=== PATIENT | female | born 1990 ===

== ENCOUNTER 2017-06-28 09:49 | Emergency (ER) | payer OTHER ==
[2017-06-28 09:52] VITALS: BMI 33.9
[2017-06-28 09:53] VITALS: BP 120/60; PULSE 80; RESP 20; TEMP 97.4; O2SAT 99
[2017-06-28] MEDS ORDERED: Sodium Chloride 0.9% 1,000 ML IV STA (10:33)
--- NOTE | 2017-06-28 10:39 | ED PDOC ---
HPI: Abdomen Chief Complaint (Provider): Lower abdominal pain/vomiting History Per: Patient History/Exam Limitations: no limitations Onset/Duration Of Symptoms: Days Outside of [place] travel?: No Current Symptoms Are (Timing): Still Present Severity: Moderate Pain Scale Rating Of: 7 Location Of Pain/Discomfort: RLQ, LLQ Quality Of Discomfort: Aching, Cramping Associated Symptoms: Nausea, Vomiting, Loss Of Appetite. denies: Fever, Diarrhea, Chest Pain, Constipation, Urinary Symptoms Exacerbating Factors: None Alleviating Factors: None Additional History Per: Patient <Mignon Hsu - Last Filed: 06/28/17 14:50> <Steven Betancourt - Last Filed: 06/28/17 15:30> Time Seen by Provider: 06/28/17 09:57 Chief Complaint (Nursing): Abdominal Pain Additional Complaint(s): This is 27 y/o female, with no PMH comes to the ED complaining of 4 days history of lower abdominal pain, NBNB vomiting, anorexia and 2 days history of vaginal spotting, less than a tea-spoon bleeding. As per patient, abdominal pain is constant, cramping in nature and non-radiating, 6/10 severity, denies any alleviating or aggravating factors. Admits nausea, headache and feeling of breast tightness, denies any fever, dyspnea, chest pain or urinary symptoms. LMP: Apr 28 2017, Positive Home test 8 days ago. PMD: NHC PMH: Denies PSH: Denies ALLG: NKDA Meds: None OBGYN: LMP 04/28/17, No history of STDs, Sexually active, denies protection use. , NVD. FH: Denies any cancers, HTN, DMII SH: Denies any alcohol, smoking or illicit drug use (Mignon Hsu) Supervising Attending Note - Supervising Attending Note The Documented history was done by the: Physician Scarf Gluer, Attending Physician The documented physical exam was done by the: Physician Scarf Gluer, Attending Physician The documented procedures were done by the: Physician Scarf Gluer, Attending Physician - Attestation: I have personally seen and examined this patient.: Yes I have fully participated in the care of the patient.: Yes I have reviewed all pertinent clinical information: Yes <Steven Betancourt - Last Filed: 06/28/17 15:30> Past Medical History Reviewed: Vital Signs - Medical History PMH: Denies: Depression, Diabetes, Deep Vein Thrombosis Other PMH: Denies - Surgical History Surgical History: No Surg Hx - Family History Family History: States: No Known Family Hx - Living Arrangements Living Arrangements: With Family - Social History Current smoker - smoking cessation education provided: No Ex-Smoker (has not smoked in the last 12 months): No Alcohol: None Drugs: Denies <Mignon Hsu - Last Filed: 06/28/17 14:50> <Steven Betancourt A - Last Filed: 06/28/17 15:30> Vital Signs: Last Vital Signs Temp 97.4 F L 06/28/17 09:53 Pulse 80 06/28/17 09:53 Resp 20 06/28/17 09:53 BP 120/60 06/28/17 09:53 Pulse Ox 99 06/28/17 14:54 - Home Medications Home Medications: Ambulatory Orders Medication Instructions Recorded No Known Home Med 06/28/17 - Allergies Allergies/Adverse Reactions: Allergies Allergy/AdvReac Type Severity Reaction Status Date / Time No Known Allergies Allergy Verified 06/28/17 10:00 Review of Systems Constitutional: Negative for: Fever Eyes: Negative for: Vision Change, Conjunctivae Inflammation ENT: Negative for: Ear Pain, Nose Pain Cardiovascular: Negative for: Chest Pain, Palpitations Respiratory: Negative for: Cough, Shortness of Breath Gastrointestinal: Positive for: Nausea, Vomiting, Abdominal Pain. Negative for : Diarrhea, Melena Genitourinary Female: Negative for: Dysuria, Frequency, Incontinence Musculoskeletal: Negative for: Neck Pain Skin: Negative for: Rash Neurological: Negative for: Weakness, Numbness, Incoordination Psych: Positive for: Anxiety <Mignon Hsu - Last Filed: 06/28/17 14:50> ROS Statement: Except As Marked, All Systems Reviewed And Found Negative <Steven Betancourt A - Last Filed: 06/28/17 15:30> Physical Exam - Reviewed Nursing Documentation Reviewed: Yes Vital Signs Reviewed: Yes - Physical Exam Appears: Positive for: No Acute Distress Head Exam: Positive for: ATRAUMATIC, NORMAL INSPECTION, NORMOCEPHALIC Skin: Positive for: Normal Color, Warm Eye Exam: Positive for: Normal appearance, EOMI ENT: Positive for: Normal ENT Inspection Neck: Positive for: Normal Cardiovascular/Chest: Positive for: Regular Rate, Rhythm, Chest Non Tender. Negative for: Edema Respiratory: Positive for: Normal Breath Sounds. Negative for: Crackles Gastrointestinal/Abdominal: Positive for: Bowel Sounds (normal), Soft, Tenderness (Lower abdo tenderness, ). Negative for: Mass, Distended, Guarding, Rebound, Asicites Back: Positive for: Normal Inspection Extremity: Positive for: Normal ROM. Negative for: Tenderness, Pedal Edema Neurologic/Psych: Positive for: Alert, Oriented. Negative for: Motor/Sensory Deficits <Mignon Hsu - Last Filed: 06/28/17 14:50> - Laboratory Results Result Diagrams: 06/28/17 10:57 06/28/17 10:57 - ECG O2 Sat by Pulse Oximetry: 99 - Progress Re-evaluation Time: 11:00 Condition: Re-examined, Improved (improved nausea and pain is somewhat better ) <Mignon Hsu - Last Filed: 06/28/17 14:50> - Laboratory Results Result Diagrams: 06/28/17 10:57 06/28/17 10:57 Urine POC: Positive Urine dip results: Negative for: Leukocyte Esterase, Blood, Nitrate, Ketones, Glucose, Protein <Steven Betancourt - Last Filed: 06/28/17 15:30> - Progress ED Course And Treament: 27 y/o with lower abdominal pain, vomiting and positive home test. - CBC, CMP, Type and Screen - Zofran 4mg IV STAT, IVF- 1L bolus - U/S lower abdo, limited - Urine dip, urine , BHcG - will re-evaluate patient for any further changes Case discussed with Dr. Betancourt 11:17: CBC and CMP reviewed, wnl 12:55: Patient reevaluated , feeling better, drinking fluid, denies any nausea or vomiting 14:29: BHC.00, O positive, Abs negative U/S: Single live IUP, approximately 6 weeks, tiny subcorionic hemorrhage, FHR 116 BPM, otherwise unremarkable exam. (Mignon Hsu) Medical Decision Making <Mignon Hsu - Last Filed: 06/28/17 14:50> <Steven Betancourt Last Filed: 06/28/17 15:30> Medical Decision Making: Differential include threatened miscarriage, demise, ectopic , and other complications, as well as UTI. (Steven Betancourt) Disposition - Patient ED Disposition Is Patient to be Admitted: No - Disposition Disposition: Routine/Home Disposition Time: 15:00 <Mignon Hsu - Last Filed: 06/28/17 14:50> Doctor Will See Patient In The: Office Counseled Patient/Family Regarding: Studies Performed, Diagnosis, Need For Followup <Steven Betancourt - Last Filed: 06/28/17 15:30> - Clinical Impression Clinical Impression: Abdominal pain during , Subchorionic hematoma - Disposition Referrals: [facility] [Outside] Condition: GOOD Additional Instructions: - Patient informed regarding her - ER/bleeding precautions given - Instructed to Follow Up with OBGYN at the clinic ([facility]) - vitamins recommended Instructions: Threatened Miscarriage (ED) Print Language: [place]
[2017-06-28 11:07] LABS: BASO # 0.1 K/uL (0.0-0.2); BASO % 0.8 % (0.0-2.0); EOS # 0.1 K/uL (0.0-0.7); EOS % 0.9 % (0.0-4.0); HEMOGLOBIN 13.7 g/dL (12.0-16.0); LYMPH # 1.9 K/uL (1.0-4.3); LYMPH % 27.8 % (20.0-40.0); MEAN CELL VOLUME 87.6 fl (81.0-99.0); MEAN CORPUSCULAR HEMOGLOBIN 29.7 pg (27.0-31.0); MEAN CORPUSCULAR HGB CONC 33.9 g/dL (33.0-37.0); MEAN PLATELET VOLUME 8.7 fl (7.2-11.7); MONO # 0.4 K/uL (0.0-0.8); MONO % 6.3 % (0.0-10.0); NEUT # 4.3 K/uL (1.8-7.0); NEUT % 64.2 % (50.0-75.0); NRBC % 0.3 % (0.0-0.0); RBC 4.61 Mil/uL (3.80-5.20); WHITE BLOOD COUNT 6.7 K/uL (4.8-10.8)
[2017-06-28 11:17] LABS: ALB/GLOB RATIO 1.2 (1.0-2.1); ALBUMIN 4.2 g/dL (3.5-5.0); ALT/SGPT 44 U/L (9-52); AST/SGOT 21 U/L (14-36); BLOOD UREA NITROGEN 7 mg/dl (7-17); CALCIUM 8.9 mg/dL (8.4-10.2); GFR AFRICAN-AMERICAN > 60; GFR NON-AFRICAN AMERICAN > 60
--- NOTE | 2017-06-28 14:19 | US ---
PROCEDURE: Obstetrical ultrasound examination HISTORY: lower abd pain COMPARISON: Not available TECHNIQUE: Transabdominal FINDINGS: Single live intrauterine gestation identified. The gestational sac diameter is 14 mm equivalent to 5 weeks 4 days. The crown-rump length is 5 mm equivalent to 6 weeks 2 days. The composite gestational age by ultrasound is 6 weeks 0 days. The heart rate is 116 beats per minute. There is a tiny subchorionic hemorrhage measuring 4 x 4 x 5 mm. A 3 mm yolk sac is visualized. The cervix is closed and measures 3.8 cm in length. The uterus measures 10.5 x 5.8 x 5.2 cm. There is no uterine mass identified. The right ovary measures 2.6 x 1.9 x 2.3 cm. Normal flow is demonstrated. There is no mass. The left ovary measures 3.2 x 1.5 x 1.5 cm. Normal flow is demonstrated. There is no mass. There is no free fluid in the cul-de-sac. IMPRESSION: Single live intrauterine gestation of approximately 6 weeks 0 days. Tiny subchorionic hemorrhage. heart rate 116 beats per minute. Otherwise unremarkable examination.
== END 2017-06-28 15:40 | disposition home or self-care (01) ==
LOC: H.ER 09:49
DX: O20.0 Threatened abortion (principal); Z3A.01 Less than 8 weeks gestation of pregnancy; O26.891 Other specified pregnancy related conditions, first trimester
CPT/HCPCS: 76815; 80053; 81025; 84702; 85025; 86850; 86900; 99284; J2405; J7040

== ENCOUNTER 2017-08-07 14:56 | Emergency (ER) | payer SELFPAY ==
[2017-08-07 14:56] VITALS: BMI 33.9
[2017-08-07 15:55] VITALS: BP 117/71; PULSE 78; RESP 18; TEMP 98.5; O2SAT 99
[2017-08-07] MEDS ORDERED: Lactated Ringer's 1,000 ML IV STA (18:16)
[2017-08-07] MEDS ORDERED: Dextrose 5%/Lactated Ringer's 1,000 ML IV SCH (18:30)
[2017-08-07 18:43] LABS: BASO # 0.1 K/uL (0.0-0.2); BASO % 0.5 % (0.0-2.0); EOS % 0.2 % (0.0-4.0); HEMOGLOBIN 13.1 g/dL (12.0-16.0); LYMPH % 13.9 % (20.0-40.0); MEAN CELL VOLUME 87.7 fl (81.0-99.0); MEAN CORPUSCULAR HEMOGLOBIN 29.6 pg (27.0-31.0); MEAN CORPUSCULAR HGB CONC 33.8 g/dL (33.0-37.0); MEAN PLATELET VOLUME 8.3 fl (7.2-11.7); MONO # 0.7 K/uL (0.0-0.8); MONO % 5.1 % (0.0-10.0); NEUT # 11.5 K/uL (1.8-7.0); NEUT % 80.3 % (50.0-75.0); NRBC % 0.1 % (0.0-0.0); RBC 4.41 Mil/uL (3.80-5.20); RED CELL DISTRIBUTION WIDTH 13.1 % (11.5-14.5); WHITE BLOOD COUNT 14.3 K/uL (4.8-10.8)
[2017-08-07 18:52] LABS: ALB/GLOB RATIO 1.1 (1.0-2.1); ALT/SGPT 35 U/L (9-52); AST/SGOT 25 U/L (14-36); BLOOD UREA NITROGEN 7 mg/dl (7-17); GFR AFRICAN-AMERICAN > 60; GFR NON-AFRICAN AMERICAN > 60
--- NOTE | 2017-08-07 19:03 | ED PDOC ---
HPI: Female Pain Time Seen by Provider: 08/07/17 17:44 Chief Complaint (Nursing): Female Genitourinary Chief Complaint (Provider): Vaginal bleeding History Per: Patient History/Exam Limitations: no limitations Onset/Duration Of Symptoms: Days (2) Current Symptoms Are (Timing): Still Present Additional Complaint(s): 27yo female, and EGA of 12 weeks based on date, presents to ED with complaints of vaginal bleeding for the past 2 days, occurring every time after she makes a bowel movement. She denies any rectal bleeding. Patient reports she is constipated; also states she has mild dysuria and frequency. She denies any care yet but states she has been taking vitamins. Carlos also reports daily nausea and vomiting. She denies any other complaints. Abnormal Vaginal Bleeding: Yes : 2 Para: 1 Past Medical History Reviewed: Historical Data, Nursing Documentation, Vital Signs Vital Signs: Last Vital Signs Temp 98.5 F 08/07/17 15:52 Pulse 78 08/07/17 15:52 Resp 18 08/07/17 15:52 BP 117/71 08/07/17 15:52 Pulse Ox 99 08/07/17 15:52 - Medical History PMH: No Chronic Diseases Denies: Depression, Diabetes, Deep Vein Thrombosis - Surgical History Surgical History: No Surg Hx - Family History Family History: States: No Known Family Hx - Home Medications Home Medications: Ambulatory Orders Medication Instructions Recorded Docusate [Colace] 100 mg PO TID PRN #30 cap 08/07/17 - Allergies Allergies/Adverse Reactions: Allergies Allergy/AdvReac Type Severity Reaction Status Date / Time No Known Allergies Allergy Verified 06/28/17 10:00 Review of Systems ROS Statement: Except As Marked, All Systems Reviewed And Found Negative (as per HPI otherwise negative) Gastrointestinal: Positive for: Nausea, Vomiting, Constipation. Negative for: Hematochezia Genitourinary Female: Positive for: Dysuria, Frequency, Vaginal Bleeding Physical Exam - Reviewed Nursing Documentation Reviewed: Yes Vital Signs Reviewed: Yes - Physical Exam Gastrointestinal/Abdominal: Positive for: Tenderness (suprapubic tenderness to palpation) - Laboratory Results Result Diagrams: 08/07/17 18:30 08/07/17 18:30 - ECG O2 Sat by Pulse Oximetry: 99 (RA) Pulse Ox Interpretation: Normal Medical Decision Making Medical Decision Making: Impression: Vaginal bleeding in Differential: Threatened , demise, UTI, dehydration Plan: -- US Transvaginal -- IV Fluids -- Zofran 4mg IVP -- Labs Time: 2040 US Transvaginal FINDINGS: Gestation: Single live intrauterine gestation. heart rate of 167 beats per minute. [place]-rump length of 5.4 cm, correlating with gestational age of 12 weeks 0 days. Biparietal diameter of 2.2 cm, correlating with gestational age of 13 weeks 4 days. Uterus/cervix: 1.7 x 1.2 x 1.8 cm collection along gestational sac. No cervical dilatation or effacement. Ovaries: Not visualized. No adnexal masses. Free fluid: No significant free fluid. IMPRESSION: 1. Single live intrauterine gestation. 2. Subchorionic hemorrhage. Scribe Attestation: Documented by Cyndi Foreman acting as a scribe for Ena Bowling MD. Provider Attestation: All medical record entries made by the Scribe were at my direction and personally dictated by me. I have reviewed the chart and agree that the record accurately reflects my personal performance of the history, physical exam, medical decision making, and the department course for this patient. I have also personally directed, reviewed, and agree with the discharge instructions and disposition. Disposition - Clinical Impression Clinical Impression: Threatened miscarriage - Disposition [facility] - [facility] (ESTA MUY IMPORTANTE QUANDO USTED LLAMA A LA CLINICA, USTED DIGA QUE USTED IRON UN PACIENTE DE LA SHANITA DE EMERGENCIA Y NECESITA IRON DEE LOS ANTES POSIBILE) Condition: GOOD Prescriptions: Docusate [Colace] 100 mg PO TID PRN #30 cap PRN Reason: constipation Instructions: Threatened Miscarriage (ED), Constipation (ED) Forms: [employer] (Thai) Print Language: COLOMBIAN
--- NOTE | 2017-08-07 20:42 | US ---
EXAM: US , Transvaginal CLINICAL HISTORY: 27 years old, female; Pain; complicated by abdominal or pelvic pain; Lower; First trimester; Gestational age or lmp: 04/28/2017; ; Additional info: Vag bleed preg R/O demise TECHNIQUE: Real-time transvaginal obstetrical ultrasound of the maternal pelvis and a first trimester with image documentation. Transvaginal imaging was used for better evaluation of the fetus and adnexa. COMPARISON: No relevant prior studies available. FINDINGS: Gestation: Single live intrauterine gestation. heart rate of 167 beats per minute. [place]-rump length of 5.4 cm, correlating with gestational age of 12 weeks 0 days. Biparietal diameter of 2.2 cm, correlating with gestational age of 13 weeks 4 days. Uterus/cervix: 1.7 x 1.2 x 1.8 cm collection along gestational sac. No cervical dilatation or effacement. Ovaries: Not visualized. No adnexal masses. Free fluid: No significant free fluid. IMPRESSION: 1. Single live intrauterine gestation. 2. Subchorionic hemorrhage.
== END 2017-08-07 21:28 | disposition home or self-care (01) ==
LOC: H.ER 14:56
DX: O20.0 Threatened abortion (principal); O21.9 Vomiting of pregnancy, unspecified; K59.00 Constipation, unspecified; Z3A.12 12 weeks gestation of pregnancy
CPT/HCPCS: 76817; 80053; 81025; 85025; 86850; 86900; 87491; 87591; 96361; 96374; 99283; J2405; J7120

== ENCOUNTER 2017-08-22 10:30 | Emergency (ER) | payer SELFPAY ==
[2017-08-22 10:30] VITALS: BMI 33.9
[2017-08-22 11:24] VITALS: RESP 18; TEMP 99.1
[2017-08-22] MEDS ORDERED: Alum-Mag Hydrox-Simethicone Susp (30 mL) PO STA (11:55)
[2017-08-22] MEDS ORDERED: Sodium Chloride 0.9% 1,000 ML IV STA (11:59)
[2017-08-22] MEDS ORDERED: Alum-Mag Hydrox-Simethicone Susp (30 mL) ONE (12:39)
--- NOTE | 2017-08-22 13:07 | ED PDOC ---
HPI: General Adult Time Seen by Provider: 08/22/17 11:45 Chief Complaint (Nursing): Abdominal Pain Chief Complaint (Provider): Throat Pain/Epigastric Pain History Per: Patient History/Exam Limitations: no limitations Onset/Duration Of Symptoms: Days (x1) Additional Complaint(s): Alex Almaguer is a 27 year old female who is currently 15 weeks that presents to the ED with a chief complaint body aches, mild sore throat, mild dry cough, and burning epigastric pain that she has been experiencing since yesterday. Patient reports that she has not been taking any medications given her , and states that she recently had an US performed for her with normal results. She denies any fever, vomiting , diarrhea, or medical problems. PMD: Goes to the clinic Past Medical History Reviewed: Historical Data, Nursing Documentation, Vital Signs Vital Signs: Last Vital Signs Temp 99.1 F 08/22/17 11:19 Pulse 116 H 08/22/17 11:19 Resp 18 08/22/17 11:19 BP 123/79 08/22/17 11:19 Pulse Ox 99 08/22/17 14:32 - Medical History PMH: No Chronic Diseases Denies: Depression, Diabetes, Deep Vein Thrombosis - Surgical History Surgical History: No Surg Hx - Family History Family History: States: Unknown Family Hx - Home Medications Home Medications: Ambulatory Orders Medication Instructions Recorded Docusate [Colace] 100 mg PO TID PRN #30 cap 08/07/17 Amoxicillin 875 mg PO BID #20 tab 08/22/17 - Allergies Allergies/Adverse Reactions: Allergies Allergy/AdvReac Type Severity Reaction Status Date / Time No Known Allergies Allergy Verified 06/28/17 10:00 Review of Systems ROS Statement: Except As Marked, All Systems Reviewed And Found Negative Constitutional: Positive for: Other (body aches). Negative for: Fever ENT: Positive for: Throat Pain (mild) Respiratory: Positive for: Cough (mild, dry) Gastrointestinal: Negative for: Vomiting, Diarrhea Physical Exam - Reviewed Nursing Documentation Reviewed: Yes Vital Signs Reviewed: Yes - Physical Exam Appears: Positive for: Non-toxic, No Acute Distress Head Exam: Positive for: ATRAUMATIC, NORMOCEPHALIC Skin: Positive for: Normal Color, Warm Eye Exam: Positive for: Normal appearance, EOMI, PERRL ENT: Positive for: Other (mild erythema to throat). Negative for: Normal ENT Inspection Neck: Positive for: Normal, Supple Cardiovascular/Chest: Positive for: Regular Rate, Rhythm. Negative for: Murmur Respiratory: Positive for: Normal Breath Sounds. Negative for: Wheezing Gastrointestinal/Abdominal: Positive for: Tenderness (mild epigastric TTP). Negative for: Normal Exam Back: Positive for: Normal Inspection. Negative for: L CVA Tenderness, R CVA Tenderness Extremity: Positive for: Normal ROM. Negative for: Deformity, Swelling Neurologic/Psych: Positive for: Alert. Negative for: Motor/Sensory Deficits - Laboratory Results Result Diagrams: 08/22/17 13:25 08/22/17 13:25 - ECG O2 Sat by Pulse Oximetry: 99 (RA) Pulse Ox Interpretation: Normal - Progress Re-evaluation Time: 14:30 Condition: Re-examined, Improved Medical Decision Making Medical Decision Making: Impression: Flu-Like Symptoms, Sore Throat, and Epigastric Pain, ddx include but not limited to Influenza vs. Strep vs. Pharyngitis vs. Gastritis Plan: * CMP * CBC * Urine Dip * Urine Preg * Tylenol 3 650 mg PO * Maalox Plus 30 ml PO * NaCl 1000 mLs at 1000 mLs/hr * Flu Swab * Rapid Strep * Reevaluation Scribe Attestation: Documented by Ofelia Young, acting as a scribe for Steven Spencer MD. Provider Scribe Attestation: All medical record entries made by the Scribe were at my direction and personally dictated by me. I have reviewed the chart and agree that the record accurately reflects my personal performance of the history, physical exam, medical decision making, and the department course for this patient. I have also personally directed, reviewed, and agree with the discharge instructions and disposition. Disposition - Clinical Impression Clinical Impression: Strep throat, Abdominal pain - Patient ED Disposition Is Patient to be Admitted: No Doctor Will See Patient In The: Office Counseled Patient/Family Regarding: Studies Performed, Diagnosis, Need For Followup - Disposition Referrals: [facility] [Outside] Disposition: Routine/Home Disposition Time: 14:29 Condition: GOOD Additional Instructions: Take your medications as instructed. Take tylenol for pain or fever. Follow up with your PCP in 2-3 days. Prescriptions: Amoxicillin 875 mg PO BID #20 tab Instructions: Gastritis, Strep Throat (DC) Print Language: URDU
[2017-08-22 13:50] LABS: BASO % 0.2 % (0.0-2.0); LYMPH # 0.9 K/uL (1.0-4.3); LYMPH % 7.1 % (20.0-40.0); MEAN CELL VOLUME 86.8 fl (81.0-99.0); MEAN CORPUSCULAR HEMOGLOBIN 29.8 pg (27.0-31.0); MEAN CORPUSCULAR HGB CONC 34.4 g/dL (33.0-37.0); MEAN PLATELET VOLUME 8.4 fl (7.2-11.7); MONO # 0.5 K/uL (0.0-0.8); MONO % 4.3 % (0.0-10.0); NEUT % 88.4 % (50.0-75.0); NRBC % 0.1 % (0.0-0.0); PLATELET COUNT 213 K/uL (130-400); RBC 4.36 Mil/uL (3.80-5.20); RED CELL DISTRIBUTION WIDTH 12.9 % (11.5-14.5); WHITE BLOOD COUNT 12.4 K/uL (4.8-10.8)
[2017-08-22 13:56] LABS: ALBUMIN 3.7 g/dL (3.5-5.0); ALT/SGPT 25 U/L (9-52); AST/SGOT 23 U/L (14-36); BLOOD UREA NITROGEN 5 mg/dl (7-17); CALCIUM 8.9 mg/dL (8.4-10.2); GFR AFRICAN-AMERICAN > 60; GFR NON-AFRICAN AMERICAN > 60
[2017-08-22 14:46] LABS: BANDS 2 % (0-2); LYMPHOCYTE 5 % (20-50); MONOCYTE 2 % (0-10); MYELOCYTE 1 % (0-0); NEUTROPHIL 90 % (42-75); TOTAL CELLS COUNTED 100
[2017-08-22 14:47] LABS: PLATELET ESTIMATE NORMAL (NORMAL)
[2017-08-22 16:08] VITALS: BP 122/76; PULSE 90; O2SAT 100
== END 2017-08-22 15:12 | disposition home or self-care (01) ==
LOC: H.ER 10:30
DX: J02.0 Streptococcal pharyngitis (principal); O26.892 Other specified pregnancy related conditions, second trimester; Z3A.15 15 weeks gestation of pregnancy
CPT/HCPCS: 80053; 85025; 87430; 87804; 99283; J7040

== ENCOUNTER 2017-10-24 18:09 | Emergency (ER) | payer SELFPAY ==
[2017-10-24 18:09] VITALS: BMI 33.9
[2017-10-24 18:14] VITALS: BP 128/80; PULSE 107; RESP 16; TEMP 98.5; O2SAT 98
--- NOTE | 2017-10-24 18:29 | ED PDOC ---
HPI: Psych/Substance Abuse Time Seen by Provider: 10/24/17 18:27 Chief Complaint (Nursing): Psychiatric Evaluation Chief Complaint (Provider): CRISIS EVAL History Per: Patient Additional Complaint(s): 27 are female currently 24 weeks presents to ER for psychiatric evaluation. Patient was at [facility] therapy appt when she expressed thoughts of wanting to harm herself. Therapist contacted ambulance and patient was brought here. Upon arrival patient states that she feels sad but denies any intention of wanting to harm herself or others. Patient states the father of her baby does not want to be with her this is causing her to feel sad. Patient denies any alcohol or drug use. She is currently taking vitamins but no other meds. Patient denies abdominal pain, vaginal bleeding or any other acute medical complaints. Past Medical History Reviewed: Historical Data, Nursing Documentation, Vital Signs Vital Signs: Last Vital Signs Temp 98.5 F 10/24/17 18:11 Pulse 107 H 10/24/17 18:11 Resp 16 10/24/17 18:11 BP 128/80 10/24/17 18:11 Pulse Ox 98 10/24/17 18:11 - Medical History PMH: No Chronic Diseases - Surgical History Surgical History: No Surg Hx - Family History Family History: States: No Known Family Hx - Living Arrangements Living Arrangements: With Family - Social History Current smoker - smoking cessation education provided: No Alcohol: None Drugs: Denies - Home Medications Home Medications: Ambulatory Orders Medication Instructions Recorded Docusate [Colace] 100 mg PO TID PRN #30 cap 08/07/17 Amoxicillin 875 mg PO BID #20 tab 08/22/17 - Allergies Allergies/Adverse Reactions: Allergies Allergy/AdvReac Type Severity Reaction Status Date / Time No Known Allergies Allergy Verified 06/28/17 10:00 Review of Systems Psych: Positive for: Depression, Suicidal ideation Physical Exam - Reviewed Nursing Documentation Reviewed: Yes Vital Signs Reviewed: Yes - Physical Exam Appears: Positive for: Well, Non-toxic, No Acute Distress Skin: Negative for: Rash Eye Exam: Positive for: Normal appearance Cardiovascular/Chest: Positive for: Regular Rate, Rhythm Respiratory: Positive for: Normal Breath Sounds Gastrointestinal/Abdominal: Positive for: Other (Gravid nontender abdomen) Back: Negative for: L CVA Tenderness, R CVA Tenderness Extremity: Positive for: Normal ROM Neurologic/Psych: Positive for: Alert, Oriented - ECG O2 Sat by Pulse Oximetry: 98 Pulse Ox Interpretation: Normal Medical Decision Making Medical Decision Makin27 year old here for crisis eval Plan: Crisis consult 1:1 bedside observation As per crisis counselor and psychiatrist [employer] saw operator, Dr. Barahona, patient does not meet criteria for admission and she is stable for discharge. Disposition - Clinical Impression Clinical Impression: Depression - Patient ED Disposition Is Patient to be Admitted: No Counseled Patient/Family Regarding: Need For Followup - Disposition [facility] Disposition: Routine/Home Disposition Time: 19:42 Condition: STABLE Additional Instructions: Follow up as directed. Instructions: Depression Forms: [employer] (Belarusian) Print Language: UKRAINIAN
[2017-10-24 19:23] LABS: SQUAMOUS EPITHIAL 2 /hpf (0-5); URINE BACTERIA RARE (<OCC); URINE BILIRUBIN NEGATIVE (NEGATIVE); URINE BLOOD NEGATIVE (NEGATIVE); URINE CLARITY CLOUDY (Clear); URINE COLOR YELLOW (YELLOW); URINE GLUCOSE (UA) NEG (Normal); URINE LEUKOCYTE ESTERASE NEG Leu/uL (Negative); URINE PROTEIN NEGATIVE (NEGATIVE); URINE UROBILINOGEN 0.2-1.0 mg/dL (0.2-1.0)
[2017-10-24 19:55] LABS: BARBITURATES, UR NEGATIVE (NEGATIVE); BENZODIAZEPINES, UR NEGATIVE (NEGATIVE); OPIATES, UR NEGATIVE (NEGATIVE); PHENCYCLIDINE, UR NEGATIVE (NEGATIVE)
[2017-10-24 20:05] LABS: ALBUMIN 3.4 g/dL (3.5-5.0); ALT/SGPT 30 U/L (9-52); AST/SGOT 18 U/L (14-36); BLOOD UREA NITROGEN 9 mg/dl (7-17); CALCIUM 8.4 mg/dL (8.4-10.2); GFR AFRICAN-AMERICAN > 60; GFR NON-AFRICAN AMERICAN > 60
[2017-10-24 20:11] LABS: BASO % 0.3 % (0.0-2.0); EOS % 0.5 % (0.0-4.0); HEMOGLOBIN 11.4 g/dL (12.0-16.0); LYMPH # 2.1 K/uL (1.0-4.3); LYMPH % 22.8 % (20.0-40.0); MEAN CELL VOLUME 88.3 fl (81.0-99.0); MEAN CORPUSCULAR HEMOGLOBIN 29.5 pg (27.0-31.0); MEAN CORPUSCULAR HGB CONC 33.5 g/dL (33.0-37.0); MEAN PLATELET VOLUME 8.3 fl (7.2-11.7); MONO # 0.6 K/uL (0.0-0.8); MONO % 6.7 % (0.0-10.0); NEUT # 6.5 K/uL (1.8-7.0); NEUT % 69.7 % (50.0-75.0); RBC 3.87 Mil/uL (3.80-5.20); RED CELL DISTRIBUTION WIDTH 13.5 % (11.5-14.5); WHITE BLOOD COUNT 9.3 K/uL (4.8-10.8)
== END 2017-10-24 20:00 | disposition home or self-care (01) ==
LOC: H.ER 18:09
DX: O99.342 Other mental disorders complicating pregnancy, second trimester (principal); Z3A.24 24 weeks gestation of pregnancy; F32.9 Major depressive disorder, single episode, unspecified

== ENCOUNTER 2017-12-19 14:36 | Emergency (ER) | payer OTHER ==
[2017-12-19 14:36] VITALS: BMI 33.9
[2017-12-19 14:41] VITALS: BP 112/69; PULSE 82; RESP 18; TEMP 97.7; O2SAT 98
--- NOTE | 2017-12-19 15:41 | ED PDOC ---
HPI: Headache Time Seen by Provider: 12/19/17 14:38 Chief Complaint (Nursing): Headache Chief Complaint (Provider): Headache History Per: Patient History/Exam Limitations: no limitations Onset/Duration Of Symptoms: Days Current Symptoms Are (Timing): Still Present Associated Symptoms: denies: Nausea, Vomiting Additional Complaint(s): 27 year old female presents to the ED for an evaluation of a headache onset for 1 week. Reports since past week, patient has right-sided, atraumatic, and gradual since onset headache. Patient is 30 weeks and under the care of Dr. Jewell. Denies head injury, fever, weakness, nausea, or vomiting. PMD: Elmira Jewell Past Medical History Reviewed: Historical Data, Nursing Documentation, Vital Signs Vital Signs: Last Vital Signs Temp 97.7 F 12/19/17 14:37 Pulse 82 12/19/17 14:37 Resp 18 12/19/17 14:37 BP 112/69 12/19/17 14:37 Pulse Ox 98 12/19/17 14:37 - Medical History PMH: Denies: Depression, Diabetes, Deep Vein Thrombosis, Hepatitis, HIV, HTN, Seizures, Sexually Transmitted Disease - Family History Family History: States: Unknown Family Hx - Home Medications Home Medications: Ambulatory Orders Medication Instructions Recorded Vit Calc,Iron,Folic 1 each PO DAILY 12/19/17 [ Vitamins] - Allergies Allergies/Adverse Reactions: Allergies Allergy/AdvReac Type Severity Reaction Status Date / Time No Known Allergies Allergy Verified 12/19/17 13:16 Review of Systems ROS Statement: Except As Marked, All Systems Reviewed And Found Negative Constitutional: Negative for: Fever, Weakness Gastrointestinal: Negative for: Nausea, Vomiting Neurological: Positive for: Headache. Negative for: Other (head injury) Physical Exam - Reviewed Nursing Documentation Reviewed: Yes Vital Signs Reviewed: Yes - Physical Exam Appears: Positive for: Well, Non-toxic, No Acute Distress Head Exam: Positive for: ATRAUMATIC, NORMAL INSPECTION, NORMOCEPHALIC Skin: Positive for: Normal Color, Warm, Dry. Negative for: Rash Eye Exam: Positive for: EOMI, Normal appearance, PERRL ENT: Positive for: Normal ENT Inspection Cardiovascular/Chest: Positive for: Regular Rate, Rhythm. Negative for: Murmur Respiratory: Positive for: Normal Breath Sounds. Negative for: Decreased Breath Sounds, Respiratory Distress Gastrointestinal/Abdominal: Positive for: Normal Exam ( abdomen), Soft. Negative for: Tenderness Neurologic/Psych: Positive for: Alert, Oriented (x3). Negative for: Motor/ Sensory Deficits, Aphasia, Facial Droop - ECG O2 Sat by Pulse Oximetry: 98 (RA) Pulse Ox Interpretation: Normal Medical Decision Making Medical Decision Making: Time: 8 Initial Impression: headache Initial Plan: --Patient given Tylenol in [facility] before evaluation in ED --Reevaluation Clinical Impression: acute headache Upon provider evaluation patient is medically stable, and requires no further treatment in the ED at this time. Patient will be discharged. Counseling was provided and all questions were answered regarding diagnosis and need for follow up with PMD. There is agreement to discharge plan. Return if symptoms persist or worsen. Scribe Attestation: Documented by Adelita Pedro, acting as a scribe for William Pederson PA-C. Provider Scribe Attestation: All medical record entries made by the Scribe were at my direction and personally dictated by me. I have reviewed the chart and agree that the record accurately reflects my personal performance of the history, physical exam, medical decision making, and the department course for this patient. I have also personally directed, reviewed, and agree with the discharge instructions and disposition. Disposition - Clinical Impression Clinical Impression: Acute headache - Patient ED Disposition Is Patient to be Admitted: No - Disposition Referrals: Arabella Newton [Outside] Disposition: Routine/Home Disposition Time: 15:00 Condition: IMPROVED Additional Instructions: Follow up with Dr. Jewell for further evaluation. Return to ED immediately if symptoms worsen. Instructions: Acute Headache (ED) Forms: Berry White (Setswana) Print Language: OMANI
== END 2017-12-19 15:16 | disposition home or self-care (01) ==
LOC: H.ER 14:36
DX: R51 Headache (principal)

== ENCOUNTER → 2017-12-19 | Emergency (ER) | payer OTHER ==
[2017-12-19 12:17] VITALS: BMI 33.9
[2017-12-19 12:25] VITALS: BP 100/59; PULSE 90; RESP 18; TEMP 98; O2SAT 97
== END | disposition left against medical advice (07) ==
LOC: CANPREER → H.ER 12:17 → H.EROB 13:00 → H.ER 13:13
DX: Z02.89 Encounter for other administrative examinations (principal)

== ENCOUNTER 2018-02-04 09:51 | Emergency (ER) | payer SELFPAY ==
--- NOTE | 2018-02-04 10:30 | OBHP ---
Datetime: 12/19/2017 18:04 IP Adm Impression: , intrauterine ; No Active Labor IP Admit Plan: Observation/Evaluation; Discharge home Admit Comment, IP Provider: Patient is a 2 para 1 EDC 02/13/2018 estimated gestational age 3 2 weeks patient presents to labor and delivery complaining of some headache she denies blurry vision dizziness patient does report some fatigue states she has been unable to sleep for 5 days. She report s good movement no leakage of fluid no vaginal bleeding Past medical history none Past surgical history none No known drug allergies Social history denies alcohol tobacco use Obstetrical history normal spontaneous vaginal delivery no complications Review of systems patient denies chest pain shortness of breath palpitations nausea vomiting diarr hea heat or cold intolerance easy bruisability musculoskeletal or neurological complaints Vital signs stable afebrile Physical exam see notes Intrauterine at 32 weeks headache Patient evaluated in labor and delivery NST reactive We will refer to ER for evaluation of headache Patient to follow up with PMD Patient is advised to take Tylenol Pelvic Type - PN: Adequate Extremities - PN: Normal Abdomen - PN: Normal Back - PN: Normal Breast - PN: Not Done Lungs - PN: Normal Heart - PN: Normal Thyroid - PN: Normal Neurologic - PN: Normal HEENT - PN: Normal General - PN: Normal FHR - Baseline A Provider: 145 Gestation - Est Wks by US: 32.0 EGA AdmitDate IP: 32.0 Vital Signs Provider: Reviewed IP Chief Complaint: Other NICHD Variability Prov Fetus A: Moderate 6-25bpm NICHD Accel Fetus A IP Provider: Prolonged NICHD Decel Fetus A IP Provider: None Genitourinary Exam: Normal DTRs - PN: Normal
[2018-02-04 11:48] VITALS: BMI 38.5
[2018-02-04] MEDS ORDERED: Lactated Ringer's 1,000 ML IV SCH ×3 (12:00→15:30)
--- NOTE | 2018-02-04 14:06 | US ---
Date of service: 02/04/2018 PROCEDURE: Ob ultrasound -modified biophysical profile HISTORY: decrease movement COMPARISON: None TECHNIQUE: Transvaginal pelvic ultrasound was performed. FINDINGS: There is a single live intrauterine fetus in cephalic presentation. Cervix is closed and measures 3.6 cm. Amniotic fluid is headache bed and amniotic fluid index is 14.5 cm. breathing movements: Score 2 movements: Scored 2 tones: Scored 2 Amniotic Fluid: Scored 2 IMPRESSION: Single live intrauterine fetus in cephalic presentation. The biophysical profile score is 8/8.
--- NOTE | 2018-02-04 17:14 | OBHP ---
Datetime: 02/04/2018 12:25 IP Adm Impression: Term, intrauterine IP Admit Plan: Discharge home Admit Comment, IP Provider: A 27 yo 38+6 wk present to [facility] due to vaginal bleeding. Pt state t hat she noticied the blood yesterday at 00:00 in the toilet and paper, but denies gush of fluid or fr equent contraction. Pt denies trauma or fall, but report sexual activity 3 days ago. Pt also complain of decrease movement for the past week, she had an u/s and they told her ba by is ``big``. Pt have no other complain at moment Pt denies fever, chills, headache, chest pain, SOB, diarrhea, constipation, polyuria, dysuria. allergy none Med: ( last pill 1 week ago) PMH none PSH: none OB hx: NMV 2010, no std reported, LMP 04/28/17, [facility] OB and US visit 02/01/18 social : no smoke, drink or alcohol use 12:43 Assessment A 27 yo 38+6 wk present to [facility] due to vaginal bleeding, and decrease movement. Will ev aluate if need admittion Pt is lying comfortable with no acute distress Vitals WNL strip reassuring PE: speculum no blood noted, cervics 2cm, 25%, -3 at 11:40 Plan MOnitor vitals Monitor strips BBP + TITI ordered 1 lit of LR at 999 15:47 reassessment Pt was lying comfortable in bed with no acute distress Pt had no complaint at moment BBP+ TITI was reassuring, no sign of distress Vitals were WNL Strip was Reassuring PE: cervics 2cm, 25%, -3 at 3:30, no blood noted on speculum exam. Plan Pt will be discharged home due pt is not in labor Pt was educated about sign and symptoms of active labor. PT should come back to ER if see gush of fluid, persistent bleeding, persistent abd pain, frequene t constant contraction. Case discussed with DR Shonda Shaffer1 OB Hospitalist Addendum: Pt seen and examined by me. Agree w/ above. 27 yo at 38+6 wks w / a little vaginal bleeding and decreased movement. VE 2/ thick per RN at 11:40 am. VE closed / thick/ high per my exam around 3:30 pm. NST reactive. BPP 8/8, TITI 14.5. Pt reports movmen t since she has been at [facility]. Pt discharged home w/ labor precautions. (ES) Pelvic Type - PN: Adequate Extremities - PN: Normal Abdomen - PN: Normal Back - PN: Normal Breast - PN: Not Done Lungs - PN: Normal Heart - PN: Normal Thyroid - PN: Not Done Neurologic - PN: Not Done HEENT - PN: Normal General - PN: Normal FHR - Baseline A Provider: 140 Comments, ACOG Physical Exam: Pt is not in acute distress Cardiac: s1/s2 heard no extra heartsound lung: lung are clear in all cuadrant abd: BS+, non tender, fundos above umbilicus extremity: no calf tenderness Pelvic exam : cervics 2cm, 25%, -3 at 11:40, no blood noted on speculum exam Reassessment 15:30 PE: 2cm, 25%, -3 at 11:40, no blood noted on speculum exam Gestation - Est Wks by US: 38.6 EGA AdmitDate IP: 37.6 Vital Signs Provider: Reviewed; Within Normal Limits IP Chief Complaint: Decreased movement; Vaginal bleeding NICHD Decel Fetus A IP Provider: None Dilatation, Provider: 2 Effacement, Provider: 25 Station, Provider: -3 Genitourinary Exam: Not Done
[2018-02-05 00:10] VITALS: BP 106/62; PULSE 87; O2SAT 99
[2018-02-05 11:56] LABS: BASO # 0.1 K/uL (0.0-0.2); BASO % 0.8 % (0.0-2.0); EOS % 0.7 % (0.0-4.0); HEMOGLOBIN 11.7 g/dL (12.0-16.0); LYMPH # 1.6 K/uL (1.0-4.3); LYMPH % 23.6 % (20.0-40.0); MEAN CELL VOLUME 79.1 fl (81.0-99.0); MEAN CORPUSCULAR HEMOGLOBIN 26.7 pg (27.0-31.0); MEAN CORPUSCULAR HGB CONC 33.7 g/dL (33.0-37.0); MEAN PLATELET VOLUME 8.8 fl (7.2-11.7); MONO # 0.5 K/uL (0.0-0.8); MONO % 8.2 % (0.0-10.0); NEUT # 4.5 K/uL (1.8-7.0); NEUT % 66.7 % (50.0-75.0); NRBC % 0.3 % (0.0-0.0); RBC 4.38 Mil/uL (3.80-5.20); RED CELL DISTRIBUTION WIDTH 15.5 % (11.5-14.5); WHITE BLOOD COUNT 6.7 K/uL (4.8-10.8)
--- NOTE | 2018-02-05 13:11 | OBHP ---
Datetime: 02/05/2018 12:25 IP Admit Plan: Admit to unit Pelvic Type - PN: Adequate Extremities - PN: Normal Abdomen - PN: Normal Back - PN: Normal Breast - PN: Not Done Lungs - PN: Normal Heart - PN: Normal Thyroid - PN: Not Done Neurologic - PN: Not Done HEENT - PN: Normal General - PN: Normal Presentation-Admit: Vertex FHR - Baseline A Provider: 140 Comments, ACOG Physical Exam: Pt is seen and examined at bedside, pt is not in acute distress Cardio: s1, s2 heard no murmur or gallop or extra heart sound lung clear in all quadrant Abdomen: bs+ nontender, fundos above umblicus extremities: no calf tenderness noted Pelvic: pooling was noted on speculum examination, 2cm dialated, with 25% effaced, -3 Gestation - Est Wks by US: 39.0 Pool Provider: Positive EGA AdmitDate IP: 39.0 IP Indication for Induction: Not Applicable IP Chief Complaint: Uterine contractions; Suspected ruptured membranes NICHD Variability Prov Fetus A: Moderate 6-25bpm NICHD Accel Fetus A IP Provider: 15X15 FHR Category Provider Fetus A: Category I NICHD Decel Fetus A IP Provider: None Dilatation, Provider: 2 Genitourinary Exam: Not Done DTRs - PN: Not Done Datetime: 02/05/2018 11:54 IP Adm Impression: Term, intrauterine ; No Active Labor; Ruptured Membranes Admit Comment, IP Provider: A 27 yo 39 wk present to [facility] due to feeling fluid gush that starte d at 9am, pt state that she felt a little water on the bed, and when she standed up she wet the floor with fluid. Pt state that she does have some contraction. Pt denies trauma or fall, but report sexu al activity 4 days ago. She did have vaginal bleed 2 days ago and came to [facility], but found out that sh e was 2cm, 25%, -3 at. Pt stated that she had decrease movement for the past week, she had an u/s and they told her baby is ``big``. Pt was sent for BBF with TITI on 02/04/18 and it was score of 8/8 cephalic presentat ion Pt denies fever, chills, headache, chest pain, SOB, diarrhea, constipation, polyuria, dysuria. allergy none Med: ( last pill 1 week ago) PMH none PSH: none OB hx: NMV 2010, no std reported, LMP 04/28/17, [facility] OB and US visit 02/01/18 social : no smoke, drink or alcohol use 11:05 Assessment A 27 yo 39 wk present to [facility] due to feeling water gush. will evaluate if need admittion Pt is lying comfortable with no acute distress Vitals WNL strip reassuring PE: speculum pooling, cervics 2cm, 25%, -3 11:00 Plan Admit pt to Labor and delivery Case discussed with DR [facility]eban [facility]...pt was laureen nd agree with note. MARKELL. Discussion with pt abotu IOL, l abor, medications, pain management, delivery and care MARKELL Membranes, Provider: Ruptured IP Hx Assessment: The History has been Reviewed and is Current Vital Signs Provider: Reviewed; Within Normal Limits Effacement, Provider: long Station, Provider:
== END 2018-02-04 15:00 | disposition home or self-care (01) ==
LOC: H.EROB2 09:51 → H.L&D 10:59 → H.EROB2 15:00
DX: O26.853 Spotting complicating pregnancy, third trimester (principal); O36.8131 Decreased fetal movements, third trimester, fetus 1; Z3A.38 38 weeks gestation of pregnancy
CPT/HCPCS: 76818; 85025; 99284; J7120

== ENCOUNTER 2018-02-05 09:20 | Inpatient (IN) | payer MEDICAID, SELFPAY ==
[2018-02-05 11:25] VITALS: BMI 38.0
[2018-02-05] MEDS ORDERED: OXYTOCIN/0.9 % NS 20 UNIT/1,000 ML BAG IV SCH (12:45)
[2018-02-05] MEDS ORDERED: Lactated Ringer's 1,000 ML IV SCH (13:15)
[2018-02-05] MEDS: Lactated Ringer's 2,000 ML IV SCH ×2 (13:32→14:30)
--- NOTE | 2018-02-05 14:13 | OBPN ---
Datetime: 02/05/2018 14:11 IP Progress Note Comment: Notified that she is 4c and requests epdiural...anestheisa notified Datetime: 02/05/2018 12:25 Pool Provider: Positive FHR - Baseline A Provider: 140 Gestation - Est Wks by US: 39.0 Presentation-Admit: Vertex NICHD Accel Fetus A IP Provider: 15X15 FHR Category Provider Fetus A: Category I NICHD Variability Prov Fetus A: Moderate 6-25bpm Dilatation, Provider: 2 NICHD Decel Fetus A IP Provider: None Datetime: 02/05/2018 11:54 Membranes, Provider: Ruptured Vital Signs Provider: Reviewed; Within Normal Limits Effacement, Provider: long Station, Provider: high
[2018-02-05] MEDS ORDERED: Fentanyl/Bupivacaine HCl 250 ML EPI ONE (14:38)
--- NOTE | 2018-02-05 16:03 | OBPN ---
Datetime: 02/05/2018 15:56 IP Progress Impression: Normal progression of labor; Reassuring heart rate IP Informed Consent Obtain: Vaginal Delivery; Risks, Benefits and Alternatives Discussed IP Progress Plan: Continue present management; Anticipate Vaginal Delivery Pool Provider: Positive Contraction Comments Provider: q2-3m FHR - Baseline A Provider: 130 Presentation-Admit: Vertex IP Progress Note Comment: She rec'd epidural form Dr Montelongo. She feels better. Active phase of labor PLAN: montior labor progress NICHD Accel Fetus A IP Provider: 15X15 FHR Category Provider Fetus A: Category I NICHD Variability Prov Fetus A: Moderate 6-25bpm Dilatation, Provider: 6 Effacement, Provider: 80 Station, Provider: -1 NICHD Decel Fetus A IP Provider: None
[2018-02-05] MEDS ORDERED: Oxycodone/Acetaminophen 5/325 mg Tab PO PRN ×2 (19:53→21:28)
[2018-02-05] MEDS ORDERED: Benzocaine/Menthol SPRAY TOP PRN ×2 (19:53→21:28)
--- NOTE | 2018-02-05 20:38 | OBDS ---
DELIVERY PERSONNEL Delivery Doctor: Marta Serna DO Casualty Insurance Claim Adjuster: Bj Tucker RN/ Andressa Mtz RN Anesthesiologist: Daily Raygoza MD Resident: Dr Banegas; Dr Panda MATERNAL INFORMATION Delivery Anesthesia: Epidural Medications in Delivery: Pitocin Estimated Blood Loss (ml): 200 Placenta Cultured: No Maternal Complications: None Provider Comments: of live infant male, over intact perineum. 1% lidocaine infiltrated into pe rineum prior. Nuchal cord was checked, none noted. was noted to have spontaneous cry, 9 /9, weight 3520g. The cord was clamped x2 and cut. Cord blood was obtained. The placenta was delivere d in tact. Patient tolerated this procedure well. EBL 200. Sponge and needle counts correct. Dr. Serna present for entire procedure [place]ash[place] PGY2 OB Hospitalist note...I attended delivery and repair...agree with PGY2 note MAHNDO LABOR SUMMARY EDC: 02/12/2018 00:00 No. Babies in Womb: 1 Attempted: No Labor Anesthesia: Epidural LABOR INFORMATION Reason for Induction: Not Applicable Reason for Induction Other: N/A Onset of Labor: 02/05/2018 09:30 Complete Dilatation: 02/05/2018 18:29 Cervical Ripening Agents: Cytotec @ Oxytocin: N/A Group B Beta Strep: Negative Antibiotics # of Doses: 0 Antibiotics Time of Last Dose: N/A Steroids Given: None Reason Steroids Not Administered: Not Applicable Other Reason Not Administered: N/A MEMBRANES Membranes Rupture Method: Spontaneous Rupture of Membranes: 02/05/2018 09:30 Length of Rupture (hrs): 10.00 Amniotic Fluid Color: Clear Amniotic Fluid Amount: None Amniotic Fluid Odor: Normal STAGES OF LABOR Stage 1 hrs: 8 Stage 1 min: 59 Stage 2 hrs: 1 Stage 2 min: 1 Stage 3 hrs: 0 Stage 3 min: 17 Total Time in Labor hrs: 10 Total Time in Labor min: 17 VAGINAL DELIVERY Episiotomy: None Laceration Extension: First Degree Laceration Type: Perineal Laceration Repair: Yes Laceration Repair Note: Examination of vaginal vault revealed a 1st degree laceration which was repa ired with 3-0 and 2-0 vicryl. Initial Vag Sponge Count: 5 laps Final Vag Sponge Count: 5 laps Initial Vag Sharps Count: 2 sutures; 1 needle Final Vag Sharps Count: 2 sutures; 1 needle Sponge Count Correct: Yes Sharps Count Correct: Yes Count Comment: Count correct _ MD acknowledged BABY A INFORMATION Infant Delivery Date/Time: 02/05/2018 19:30 Method of Delivery: Vaginal Born in Route : No : N/A Forceps: N/A Vacuum Extraction: N/A Shoulder Dystocia : No SHOULDER DYSTOCIA BABY A Delivery Date/Time: 02/05/2018 19:30 PRESENTATION/POSITION BABY A Presentation: Cephalic Cephalic Presentation: Vertex Breech Presentation: N/A PLACENTA INFORMATION BABY A Placenta Delivery Time : 02/05/2018 19:47 Placenta Method of Delivery: Spontaneous Placenta Status: Delivered SCORES BABY A Heart Rate 1 min: >100 bpm Resp Effort 1 min: Good Cry Reflex Irritability 1 min: Cough or Sneeze or Pulls Away Muscle Tone 1 min: Active Motion Color 1 min: Body [place], Extremities Blue Resuscitation Effort 1 min: Tactile Stimulation SCORE 1 MIN: 9 Heart Rate 5 min: >100 bpm Resp Effort 5 min: Good Cry Reflex Irritability 5 min: Cough or Sneeze or Pulls Away Muscle Tone 5 min: Active Motion Color 5 min: Body [place], Extremities Blue Resuscitation Effort 5 min: N/A SCORE 5 MIN: 9 INFORMATION BABY A Gestational Age at Delivery: 38.0 Gestational Status: Term Outcome : Liveborn Condition : Stable Sex: Male IDENTIFICATION/MEDS BABY A ID Band Number: [id number] ID Band Location: Left Leg; Left Arm Vitamin K Given : Not Given Erythromycin Given: Not Given WEIGHT/LENGTH BABY A Birthweight (gms): 3520 Weight (lb): 7 Weight (oz): 12 CORD INFORMATION BABY A No. Cord Vessels: 3 Nuchal Cord : N/A Nuchal Cord Other: 0 True Knot: 0 Cord pH Baby Arterial: N/A Cord pH Baby Venous: N/A Cord Blood Taken: Yes Banking/Donate Info: N/A Infant Suction: Mouth; Nose ASSESSMENT BABY A Complications: None Physical Findings at Delivery: Within Normal Limits Respirations: Appears Normal Manager Gaming/ALS Called : No Care By: Andressa Mtz RN/ Bj Tucker RN Transferred To: Remains with Mother
[2018-02-06 06:46] LABS: BASO # 0.1 K/uL (0.0-0.2); BASO % 0.5 % (0.0-2.0); EOS % 0.4 % (0.0-4.0); HEMOGLOBIN 10.4 g/dL (12.0-16.0); LYMPH # 2.7 K/uL (1.0-4.3); LYMPH % 26.8 % (20.0-40.0); MEAN CELL VOLUME 79.5 fl (81.0-99.0); MEAN CORPUSCULAR HEMOGLOBIN 27.1 pg (27.0-31.0); MEAN CORPUSCULAR HGB CONC 34.1 g/dL (33.0-37.0); MEAN PLATELET VOLUME 8.5 fl (7.2-11.7); MONO # 0.9 K/uL (0.0-0.8); MONO % 8.8 % (0.0-10.0); NEUT # 6.3 K/uL (1.8-7.0); NEUT % 63.5 % (50.0-75.0); NRBC % 0.1 % (0.0-0.0); RBC 3.82 Mil/uL (3.80-5.20); RED CELL DISTRIBUTION WIDTH 15.1 % (11.5-14.5); WHITE BLOOD COUNT 9.9 K/uL (4.8-10.8)
[2018-02-07] MEDS ORDERED: Pneumococcal 23-Valent Vaccine IM ONE (08:08)
--- NOTE | 2018-02-07 08:16 | CP.PCM.CON ---
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 Patient denies acute depression/anxiety/AH/VH/SI/HI. She reports that she is happy about her child and denies any ideation to harm herself or others. PPHx: H/o outpatient treatment, denies h/o treatment with medications ALL: NKDA SHx: Lives w/ partner, has 2 children ( and 8 yr old in [place]), from [place], unemployed (financially supported by partner), no drugs/etoh/cig use MSE: A + O x 3, calm, cooperative, no acute distress, mood/affect- neutral, thought process- linear/coherent, thought content- no delusions, NO AH/VH/SI/HI ; good I/J; good impulse control Impression: 27 yo female denies acute depression. She is psychiatrically cleared for discharge. Past Patient History - Past Social History Smoking Status: Former Smoker - CARDIAC Hx Hypertension: No - PULMONARY Hx Tuberculosis: No - NEUROLOGICAL Hx Seizures: No - HEMATOLOGICAL/ONCOLOGICAL Hx Human Immunodeficiency Virus (HIV): No - GENITOURINARY/GYNECOLOGICAL Hx Sexually Transmitted Disorders: No - PSYCHIATRIC Hx Depression: No Meds Allergies/Adverse Reactions: Allergies Allergy/AdvReac Type Severity Reaction Status Date / Time No Known Allergies Allergy Verified 12/19/17 13:16 - Medications Medications: Current Medications Benzocaine/Menthol (Dermoplast) 1 sprays TOP Q6 PRN PRN Reason: Perineal Discomfort Ibuprofen (Motrin Tab) 600 mg PO Q6 PRN PRN Reason: Pain, Mild (1-3) Last Admin: 02/06/18 22:21 Dose: 600 mg Oxycodone/Acetaminophen (Percocet 5/325 Mg Tab) 1 tab PO Q4 PRN PRN Reason: Pain, moderate (4-7) Stop: 02/08/18 19:54 Sennosides (Senokot Tab) 17.2 mg PO HS TIA Last Admin: 02/06/18 22:21 Dose: 17.2 mg Results - Labs Result Diagrams: 02/06/18 06:00
--- NOTE | 2018-02-07 11:22 | OBPPN ---
Datetime: 02/07/2018 07:34 PP Pain Prov: Within normal limits PP Nausea Prov: Denies PP Flatus Prov: Yes PP BM Prov: Yes PP Heart Prov: Normal PP Lungs Prov: Normal PP Abdomen/Uterus Prov: Normal PP Lochia Prov: Normal PP CVA Tenderness Prov: Normal PP Extremities Prov: Normal PP Progress Prov: Normal PP Impression Prov: Normal progression PP Plan Prov: Discharge PP Progress Note Prov: Patient seen this morning, s/p on 02/05/18 today in her PPD2, had an unev entful night, she is ambulating w/o difficulties or dizziness, tolerates eating solid food, reports l ochia is less than menses in volume, voiding well w/o blood noted in urine, passing gas per rectum, b ut has not had a BM yet, reports baby. Denies feeling sad, anxious, MENDOZA, chest pain, SOB , abdominal pain, palpitations, N/V, or calf pain. Physical Exam GEN: NAD HEENT: Normocephalic, EOMI RESP: CTA b/l CV: RRR, S1 s2 present, no murmurs noted Abdomen: Soft, BS present, uterus below umbilicus level. LE: No edema, Miguel Angel's negative Assessment/plan: 27 y/o now, with good progression today in her PPD2 -continue current post- management -VS monitoring -Motrin 600 mg PO Q6h prn pain -Encourage and ambulation -D/C today after Social service eval and psychiatry clearance. Bj Panda MD PGY1 Attending addendum: I saw and examined the patient at bedside this morning myself. I reviewed the resident note above and agree with findings and management. DC home today. f/u w/ PMD 4-6wks Pamela Lamar MD IP PP Procedures: None Vital Signs Provider PP: Reviewed; Within Normal Limits Datetime: 02/06/2018 19:21 PP Breasts Prov: Not Done PP Vulva/Perineum Prov: Not Done
--- NOTE | 2018-02-07 11:22 | OBDCSUM ---
Datetime: 02/04/2018 15:49 Disch Instr Activity: Normal activity; May be up to bathroom; May be up for meals; May Shower Discharge Instructions, Provider: Routine instructions given Discharge Diagnosis, Provider: Term Delivered Discharge Time: 02/07/2018 11:00 Follow up in weeks, Provider: 5 to 6 weeks Contraception discussed, Prov: Yes Disch Activity Restrictions: No lifting; No sexual activity; Nothing in vagina - [place], tampon s, douche Contraception after Delivery: Undecided
[2018-02-07 21:56] VITALS: BP 114/68; PULSE 71; RESP 18; TEMP 98.3; O2SAT 100
== END 2018-02-07 14:05 | disposition home or self-care (01) | DRG 775 ==
LOC: H.EROB2 09:20 → H.L&D 11:13 → H.OB/GYN 21:51
PROVIDERS: ADMIT Obstetrics & Gynecology; ATTEND Obstetrics & Gynecology
PROC: 10E0XZZ Delivery of Products of Conception, External Approach (ICD-10-PCS; principal; 2018-02-05)
PROC: 0HQ9XZZ Repair Perineum Skin, External Approach (ICD-10-PCS; 2018-02-05)
PROC: 4A1HXCZ Monitoring of Products of Conception, Cardiac Rate, External Approach (ICD-10-PCS; 2018-02-05)
PROC: 3E0234Z Introduction of Serum, Toxoid and Vaccine into Muscle, Percutaneous Approach (ICD-10-PCS; 2018-02-07)
DX: O70.0 First degree perineal laceration during delivery (principal); Z37.0 Single live birth; Z3A.38 38 weeks gestation of pregnancy; Z86.59 Personal history of other mental and behavioral disorders; Z87.891 Personal history of nicotine dependence; Z23 Encounter for immunization